=== PATIENT | male | born 1935 | race Caucasian/White ===

== ENCOUNTER 2017-04-04 16:46 | Emergency (ER) | payer MEDICARE, OTHER | END 2017-04-04 18:47 | disposition home or self-care (01) | LOC: FER 16:46 | DX: S01.81XA Laceration without foreign body of other part of head, initial encounter (principal); I10 Essential (primary) hypertension; E78.5 Hyperlipidemia, unspecified; Z79.899 Other long term (current) drug therapy; W20.8XXA Other cause of strike by thrown, projected or falling object, initial encounter; Y92.009 Unspecified place in unspecified non-institutional (private) residence as the place of occurrence of the external cause ==

== ENCOUNTER → 2022-04-07 | Day surgery (SDC) | payer MEDICARE, OTHER ==
[~2022-04-07] VITALS: Ht 177.8 cm; Wt 72.8 kg
[~2022-04-07] MED LIST: ASPIRIN325 M1 PO; CARBIDOPA-LEVO1 EAC6 PO; CERTAGEN1 EACH PO; DESYREL50 MG PO; FLOMAX0.4 MG PO; KEFLEX250 MG PO; LIPITOR40 MG PO; NIACIN500 M3 PO; NORCO 5-325 TA1 EACH PO; OMEPRAZOLE40 MG PO; ONDANSETRON ODT8 MG PO; PERCOCET 5-3251 EACH PO; PROSCAR5 MG PO; PROZAC10 MG PO; SENOKOT-S TABL1 EACH PO; TENORMIN50 MG PO
[2022-04-07 09:37] LABS: HCT 31.5 % (42.0-52.0); HGB 10.4 g/dl (13.2-18.0); MCH 32.1 pg (25.0-31.0); MCV 97.2 fL (78.0-100.0); MPV 11.5 fL (6.0-9.5); RBC 3.24 M/uL (4.70-6.00); RDW 14.6 % (11.5-14.0); WBC 6.2 K/uL (4.0-10.5)
[2022-04-07 09:58] LABS: ALBUMIN 3.3 g/dL (3.4-5.0); BILIRUBIN - TOTAL 0.8 mg/dL (0.2-1.0); CREATININE 1.16 mg/dL (0.67-1.17); GLOBULIN (CALCULATION) 2.8 g/dL; POTASSIUM 3.4 mmol/L (3.5-5.1); TOTAL PROTEIN 6.1 g/dL (6.4-8.2)
== END | disposition home or self-care (01) ==
LOC: FAS 03-02 08:56
PROVIDERS: Surgery
DX: K40.30 Unilateral inguinal hernia, with obstruction, without gangrene, not specified as recurrent (principal); D17.6 Benign lipomatous neoplasm of spermatic cord; I10 Essential (primary) hypertension; E78.5 Hyperlipidemia, unspecified; K21.9 Gastro-esophageal reflux disease without esophagitis
CPT/HCPCS: 36415; 80053; 93005; C1727; C1781; J0690; J2405; J2704; J2710; J3010; J3490; J7120

== ENCOUNTER 2022-04-08 06:55 | Emergency (ER) | payer MEDICARE, OTHER ==
[2022-04-08] MEDS ORDERED: FLOMAX0.4 MG PO (07:14)
[2022-04-08 07:49] LABS: BILIRUBIN NEGATIVE (NEGATIVE); BLOOD 1+ Ery/uL (NEGATIVE); CLARITY CLEAR (CLEAR); COLOR YELLOW (YELLOW); GLUCOSE (U) NORMAL (NORMAL); LEUKOCYTES NEGATIVE Leu/uL (NEGATIVE); NITRITE NEGATIVE (NEGATIVE); PROTEIN NEGATIVE (NEGATIVE); SPECIFIC GRAVITY 1.015 (1.001-1.030)
[2022-04-08 08:22] LABS: SQUAMOUS EPITHELIAL CELLS RARE
== END 2022-04-08 09:03 | disposition home or self-care (01) ==
LOC: FER 06:55
PROVIDERS: Emergency Medicine
DX: R33.9 Retention of urine, unspecified (principal)
CPT/HCPCS: 81001

== ENCOUNTER 2022-04-19 12:23 | Emergency (ER) | payer OTHER ==
[2022-04-19 14:18] LABS: BASOPHIL 0.9 % (0-2); EOSINOPHIL 1.6 % (0-7); HCT 31.3 % (42.0-52.0); HGB 10.3 g/dl (13.2-18.0); LYMPHOCYTE 21.8 % (15-48); MCH 31.9 pg (25.0-31.0); MCHC 32.9 g/dL (32.0-36.0); MCV 96.9 fL (78.0-100.0); MONOCYTE 10.3 % (0-12); MPV 10.8 fL (6.0-9.5); NEUTROPHIL 64.7 % (41-80); NRBC 0; PLT 162 K/uL (150-400); RBC 3.23 M/uL (4.70-6.00); RDW 14.7 % (11.5-14.0); WBC 5.6 K/uL (4.0-10.5)
[2022-04-19 14:27] LABS: BUN/CREAT RATIO (CALC) 20.2 RATIO; CREATININE 0.99 mg/dL (0.67-1.17); POTASSIUM 3.6 mmol/L (3.5-5.1)
== END 2022-04-19 16:09 | disposition home or self-care (01) ==
LOC: FER 12:23
PROVIDERS: Nurse Practitioner Family
DX: R63.4 Abnormal weight loss (principal); R91.8 Other nonspecific abnormal finding of lung field; I10 Essential (primary) hypertension; Z87.891 Personal history of nicotine dependence
CPT/HCPCS: 36415; 71045; 80048; 85025